=== PATIENT | male | born 1980 | race Caucasian/White ===

== ENCOUNTER 2019-08-21 06:20 | Inpatient (IN) | payer OTHER ==
[~2019-08-21] VITALS: Ht 177.8 cm; Wt 75.5 kg
[2019-08-21] MEDS ORDERED: BUPROPION XL150 M1 PO (06:35)
[2019-08-21 06:44] LABS: BASOPHILS ABSOLUTE AUTO 0.05 K/mm3 (0.00-0.23); BASOPHILS PERCENT AUTO 1 % (0-2); EOSINOPHILS ABSOLUTE AUTO 0.12 K/mm3 (0.00-0.68); EOSINOPHILS PERCENT AUTO 1 % (0-6); Hematocrit 44.8 % (37.0-53.0); Hemoglobin 15.4 g/dL (13.5-17.5); IMMATURE GRAN ABSOLUTE AUTO 0.03 K/mm3 (0.00-0.10); IMMATURE GRAN PERCENT AUTO 0 % (0-1); LYMPHOCYTES ABSOLUTE AUTO 2.72 K/mm3 (0.84-5.20); LYMPHOCYTES PERCENT AUTO 32 % (21-46); MONOCYTES ABSOLUTE AUTO 0.86 K/mm3 (0.16-1.47); MONOCYTES PERCENT AUTO 10 % (4-13); Mean Corpuscular HGB 31.6 pg (26.0-34.0); Mean Corpuscular HGB Conc 34.4 g/dL (31.5-36.5); Mean Corpuscular Volume 92 fL (80-100); Mean Platelet Volume 10.8 fL (9.1-12.4); NEUTROPHILS ABSOLUTE AUTO 4.79 K/mm3 (1.96-9.15); NEUTROPHILS PERCENT AUTO 56 % (41-73); Platelet Count 344 K/mm3 (150-400); RDW Coefficient Variation 11.9 % (11.7-14.2); Red Blood Cell Count 4.88 M/mm3 (4.30-5.90); White Blood Cell Count 8.57 K/mm3 (4.00-11.30)
[2019-08-21 06:56] LABS: Alanine Aminotransfer (ALT/SGP 26 U/L (12-78); Albumin, Blood 4.1 g/dL (3.4-5.0); Albumin/Globulin Ratio 1.1 (0.8-1.8); Alk Phos 81 U/L (50-136); Anion Gap 6 mmol/L (6-16); Aspartate Aminotrans (AST/SGOT 22 U/L (12-37); Bilirubin, Total 0.6 mg/dL (0.1-1.0); Blood Urea Nitrogen 12 mg/dL (8-24); Bun/Creatinine Ratio 16.1 (12.0-20.0); CO2, Blood 27 mmol/L (21-32); Chloride, Blood 107 mmol/L (98-108); Creatinine, Blood 0.75 mg/dL (0.60-1.20); Ethanol (Alcohol), Blood, Med <3 mg/dL; Globulin, Blood 3.8 g/dL (2.2-4.0); Glomerular Filtration Rate >60 (60-); Glucose, Blood 142 mg/dL (70-99); Potassium, Blood 3.5 mmol/L (3.5-5.5); Salicylate <1.7 mg/dL (2.8-20.0); Sodium, Blood 140 mmol/L (136-145); Total Protein, Blood 7.9 g/dL (6.4-8.2)
[2019-08-21 06:58] LABS: Acetaminophen, Random <2.0 ug/mL (10.0-30.0)
--- NOTE | 2019-08-21 09:00 | NUR ---
PT ADMIT PT ADMIT FROM ER, LETHARGIC BUT ARROUSABLE AND FOLLOWS ALL COMMANDS, CALM AT THIS TIME. 12 LEAD OBTAINED, LR BOLUSED, WILL REPLACE K, ONE AMP OF BICARB GIVEN WITH BICARB DRIP STARTED PER ORDER.MONITORING FOR SZ ACTIVITY. VSS AFEBRILE AND PALP PULSES T/O SBP STABLE. RA WITH SATS WNL. CLEAR T/O NPO AND NO BM. 1:1 PT OBS REMAINS AND WILL CONT TO MONITOR
[2019-08-21 09:48] LABS: Base Excess Venous -2.1 mmol/L; Bicarbonate Venous 23.2 mmol/L (24.0-30.0); PCO2 Venous 34.6 mmHg (38-42); PO2 Venous 139 mmHg (38-42); pH Blood Venous 7.42 (7.34-7.37)
[2019-08-21 15:26] LABS: Base Excess Venous 2.7 mmol/L; Bicarbonate Venous 26.7 mmol/L (24.0-30.0); PCO2 Venous 39.2 mmHg (38-42); PO2 Venous 150 mmHg (38-42); pH Blood Venous 7.44 (7.34-7.37)
[2019-08-21 15:29] LABS: Magnesium, Blood 2.2 mg/dL (1.6-2.4); Potassium, Blood 3.5 mmol/L (3.5-5.5)
[2019-08-21 16:04] LABS: Anion Gap 7 mmol/L (6-16); Blood Urea Nitrogen 9 mg/dL (8-24); CO2, Blood 26 mmol/L (21-32); Calcium, Blood 7.9 mg/dL (8.5-10.1); Chloride, Blood 105 mmol/L (98-108); Creatinine, Blood 0.69 mg/dL (0.60-1.20); Glomerular Filtration Rate >60 (60-); Glucose, Blood 150 mg/dL (70-99); Potassium, Blood 3.5 mmol/L (3.5-5.5); Sodium, Blood 138 mmol/L (136-145)
--- NOTE | 2019-08-21 16:16 | NUR ---
PT UPDATE PT REMAINS DROWSY BUT CALM AND COOPREATIVE AND FOLLOWING COMMANDS. DENIES PAIN AT THIS TIME AND 1:1 OBS REMAINS. VSS, TACHY, SBP STABLE AFEBRILE AND PALP PULSES T/O NO EDEMA. Q 1HR 12LEADS COMPLETE AND WILL CONT TO MONITOR QT. RA WITH SATS WNL. NPO ABD FLAT AND SOFT, NO BM. PT VOID CLEAR AND YELLOW URINE WITH UA SENT. SKIN INTAKE. ONE MORE LITER OF LR GIVEN AND K REPLACED PER ORDER. WILL CONT TO MONITOR
--- NOTE | 2019-08-21 21:41 | NUR ---
21:35 SPOKE WITH POISON CONTROL. TO PREVENT ISSUES WITH HYPOKALEMIA, SUGGESTED TO STOP SODIUM BICARB DRIP FOR X1 HOUR, CHECK AN EKG, THEN IF QRS/QT/QTC MAINTAINING, MAY LEAVE BICARB DRIP OFF FOR NIGHT. CURRENTLY HR=91, QRS = 0.12 SECONDS, QT = 0.40 SEC., QTc = 0.492. POTASSIUM HAS BEEN REPLACED WITH 40 MEQ, WILL RECHECK IN AM. SPOKE WITH DR. GONG, HE IS OK WITH INITIATING THESE ORDERS. VSS. WILL CONTINUE TO MONITOR.
--- NOTE | 2019-08-21 21:52 | NUR ---
DIRECT LINE FOR POISON CONTROL = [phone].
[2019-08-21 21:53] LABS: Source, Urine Clean Catch
[2019-08-21 22:02] LABS: Bilirubin, Urine Neg (Neg); Blood, Urine 1+ (Neg); Glucose Qualitative, Urine 1+ (Neg); Ketones, Urine Neg (Neg); Leukocyte Esterase, Urine Neg (Neg); Nitrite, Urine Neg (Neg); Protein, Urine Neg (Neg); Urobilinogen, Urine NORM (Normal)
[2019-08-21 22:13] LABS: U Amphetamine Screen Not Detected; U Barbituate Screen Not Detected; U Benzodiazapine Screen DETECTED; U Buprenorphine Screen Not Detected; U Cannabinoids Screen Not Detected; U Cocaine Screen Not Detected; U Methadone Screen Not Detected; U Methamphetamine Screen Not Detected; U Opiates Screen Not Detected; U Oxycodone Screen Not Detected; U Phencyclidine Screen Not Detected; U Propoxyphene Screen Not Detected
[2019-08-21 22:14] LABS: Appearance, Urine Clear (Clear); Bacteria Not Seen /hpf; Color, Urine Yellow (P-Yellow); Red Blood Cells, Urine Rare /hpf (0-2); Squamous Epithelial Cells Not Seen /hpf (Few); White Blood Cells, Urine Not Seen /hpf (0-5)
[2019-08-22 00:15] LABS: Anion Gap 7 mmol/L (6-16); Blood Urea Nitrogen 7 mg/dL (8-24); Bun/Creatinine Ratio 10.2 (12.0-20.0); CO2, Blood 28 mmol/L (21-32); Calcium, Blood 8.5 mg/dL (8.5-10.1); Chloride, Blood 109 mmol/L (98-108); Creatinine, Blood 0.69 mg/dL (0.60-1.20); Glomerular Filtration Rate >60 (60-); Glucose, Blood 114 mg/dL (70-99); Magnesium, Blood 2.2 mg/dL (1.6-2.4); Phosphorus, Blood 2.1 mg/dL (2.5-4.9); Potassium, Blood 3.7 mmol/L (3.5-5.5); Sodium, Blood 144 mmol/L (136-145)
--- NOTE | 2019-08-22 05:29 | NUR ---
SHIFT SUMMARY PATIENT SLEPT WELL THROUGH NIGHT. VSS. NO C/O PAIN. PATIENT DECLINED INTENTION TO HARM SELF/OTHERS EVERY TIME HE WAS ASKED. ELECTROLYTES REPLACED APPROPRIATE. EKGS OBTAINED, PASSED ON TOWARD POISON CONTROL THEY HAVE CALLING FREQUENTLY ASKING FOR UPDATES. QRS HAS MAINTAINED FROUN 0.14, GIVE OR TAKE O.02. QTc VARIED FROM 0.492 - 0.520. NEARLY NO ECTOPY NOTED THROUGH SHIFT. ASSESSMENT IS CHARTED. WILL CONTINUE TO MONITOR.
[2019-08-22 05:33] LABS: BASOPHILS ABSOLUTE AUTO 0.02 K/mm3 (0.00-0.23); BASOPHILS PERCENT AUTO 0 % (0-2); EOSINOPHILS ABSOLUTE AUTO 0.01 K/mm3 (0.00-0.68); EOSINOPHILS PERCENT AUTO 0 % (0-6); Hemoglobin 13.3 g/dL (13.5-17.5); IMMATURE GRAN ABSOLUTE AUTO 0.05 K/mm3 (0.00-0.10); IMMATURE GRAN PERCENT AUTO 0 % (0-1); LYMPHOCYTES ABSOLUTE AUTO 0.73 K/mm3 (0.84-5.20); LYMPHOCYTES PERCENT AUTO 5 % (21-46); MONOCYTES ABSOLUTE AUTO 1.16 K/mm3 (0.16-1.47); MONOCYTES PERCENT AUTO 8 % (4-13); Mean Corpuscular HGB 31.5 pg (26.0-34.0); Mean Corpuscular HGB Conc 34.1 g/dL (31.5-36.5); Mean Corpuscular Volume 92 fL (80-100); Mean Platelet Volume 10.7 fL (9.1-12.4); NEUTROPHILS ABSOLUTE AUTO 12.73 K/mm3 (1.96-9.15); NEUTROPHILS PERCENT AUTO 87 % (41-73); Platelet Count 265 K/mm3 (150-400); RDW Coefficient Variation 12.4 % (11.7-14.2); RDW Standard Deviation 41.6 fL (35.1-46.3); Red Blood Cell Count 4.22 M/mm3 (4.30-5.90)
[2019-08-22 05:55] LABS: Alanine Aminotransfer (ALT/SGP 22 U/L (12-78); Albumin, Blood 3.4 g/dL (3.4-5.0); Alk Phos 76 U/L (50-136); Anion Gap 6 mmol/L (6-16); Aspartate Aminotrans (AST/SGOT 20 U/L (12-37); Bilirubin, Total 0.6 mg/dL (0.1-1.0); Blood Urea Nitrogen 6 mg/dL (8-24); Bun/Creatinine Ratio 8.3 (12.0-20.0); CO2, Blood 27 mmol/L (21-32); Calcium, Blood 8.5 mg/dL (8.5-10.1); Chloride, Blood 111 mmol/L (98-108); Creatinine, Blood 0.72 mg/dL (0.60-1.20); Globulin, Blood 3.3 g/dL (2.2-4.0); Glomerular Filtration Rate >60 (60-); Glucose, Blood 123 mg/dL (70-99); Potassium, Blood 3.9 mmol/L (3.5-5.5); Sodium, Blood 144 mmol/L (136-145); Total Protein, Blood 6.7 g/dL (6.4-8.2)
--- NOTE | 2019-08-22 09:35 | NUR ---
INITIAL ASSESMENT PT DROWSYLETHARGIC BUT ARROUSABLE AND FOLLOWS ALL COMMANDS, CALM AND COOPERATI THIS TIME. [facility] IN THIS AM TO EVAL PT AND DR DEMPSEY CONSULTED BICARB DRIP REMAINS PER ORDER AND LR INFUSION CONT. MONITORING FOR SZ ACTIVITY AND PT AUDITORY AND VISUAL HALLUCINATIONS VSS AFEBRILE AND PALP PULSES T/O SBP STABLE. RA WITH SATS WNL. CLEAR T/O NPO AND NO BM AND MED EMESIS THIS AM WITH PRN ADMINISTERED AND BT PRESENT T/O 1:1 PT OBS REMAINS AND WILL CONT TO MONITOR
--- NOTE | 2019-08-22 10:43 | NUR ---
Safety Plan complete. Pt cooperative. Still sick to his stomach. He lives with biological mom in [place]. He moved in with her 2 months ago. He works at [id number]. 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 He reports "it was stupid" and "should'vee just waited" for it to pass regarding his OD. He agrees to locking up meds. Mom present during interview and agreed, He states he OD'd because his mom became so upset and angry when he was telling her of his past use--he felt hopeless. He currently has future plans, was responsible and called his work to let them know he would not be in. Recommend he go directly to [facility] for Walk In and get counselor and med provider if he is DC from Hospital. Mom agreed to take him to [facility]. Lupe Ford M.Ed., [facility]
--- NOTE | 2019-08-22 16:30 | NUR ---
PT UPDATE PT REMAINS CALM AND COOPREATIVE ALERT AND ORIENT TIMES 4. 1:1 OBS D/C AND BICARB OFF PER MD ORDER. WILL FOLLOW UP WITH 12 LEAD IN ONE HOUR PER MD ORDER. VSS, RA SATS WNL, NO N/V AT THIS TIME. UO ADEQUATE. PT TO TRANSFER TO [facility] BASED ON ROOM AVAIL. WILL CONT TO MONITOR
--- NOTE | 2019-08-22 21:30 | NUR ---
ASSUMPTION OF CARE ASSUMED CARE OF PT AT 1900, PT RESTING IN BED, AROUSABLE, DENIES SI AT THIS TIME, A&O x4. LS CLEAR T/O, MAINTAINING O2 SATURATIONS ON RA. MONITOR SHOWS NSR, QRS AND QT WNL. PT TOLERATING PO INTAKE, DENIES NAUSEA. REPORT FROM DAY SHIFT PT USING URINAL AND VOIDING ON OWN, PT DENIES GI/ ISSUES AT THIS TIME. PT PLEASANT AND COOPERATIVE, MAKES NEEDS KNOWN, USES CALL LIGHT APPROPRIATELY.
--- NOTE | 2019-08-22 22:23 | NUR ---
REPORT GIVEN TO TERESE VEGA, PT TRANSPORTED TO MEDICAL FLOOR VIA WHEELCHAIR.
--- NOTE | 2019-08-22 22:52 | NUR ---
PATIENT TRANSFERRED FROM ICU 2 TO ROOM 348. ARRIVED TO FLOOR VIA WC. TRANSFERRED TO BED WITH STEADY GAIT. SETTLED INTO THE ROOM, STATES HIS DEPRESSION IS DOING BETTER, AND HE HAS NO SUICIDIAL INTENSIONS AT THIS TIME. ASSESSMENT COMPLETE. CALL LIGHT GIVEN.
--- NOTE | 2019-08-22 23:57 | NUR ---
SHEREEN LAYING WATCHING TV, DENIES ANY NEEDS AT THIS TIME.
--- NOTE | 2019-08-23 06:15 | NUR ---
SHIFT SUMMARY: SHEREEN WAS A ICU TRANSFER TO THIS FLOOR AROUND 0 LAST NIGHT. HE HAS BEEN PLEASANT AND COOPERATIVE. HE HAS DENIED ANY THOUGHTS OF SUICIDE OR PLANS TO HARM HIM SELF. STATES HIS DEPRESSION IS OK AT THIS TIME, HE FEELS SAFE IN THE HOSPITAL. HE HAS BEEN SLEEPING THIS SHIFT EXCEPT WHEN USING THE BATHROOM WHICH HE DOES INDEPENDANTLY. NO ACUTE CHANGES OCCURRED, WILL REPORT TO DAY SHIFT RN.
--- NOTE | 2019-08-23 16:17 | NUR ---
discharge summary patient is pleasant, mom in the room which is okay with the patient. he is alert and oriented. ivs removed. all discharge information was discussed with his mother and him in the room. patient to be wheeled out by ivy villatoro.
== END 2019-08-23 16:30 | disposition home or self-care (01) | DRG 918 ==
LOC: ER 06:20 → ICUE 07:48 → ICUW 07:48 → ICUE 08:32 → MEDS 08-22 22:28
PROVIDERS: Emergency Medicine; Internal Medicine; Nurse Practitioner Acute Care; ADMIT Internal Medicine
DX: T43.291A Poisoning by other antidepressants, accidental (unintentional), initial encounter (principal); F32.9 Major depressive disorder, single episode, unspecified; G40.409 Other generalized epilepsy and epileptic syndromes, not intractable, without status epilepticus; R94.31 Abnormal electrocardiogram [ECG] [EKG]; Z91.5 Personal history of self-harm
CPT/HCPCS: 36415; 80048; 80053; 81001; 82800; 82803; 83735; 84100; 84132; 85025; 93005; 93010; 96365; 96366; 96375; 99285-25; G0480; J0780; J1650; J2060; J3475; J3480; J7030; J7060; J7070; J7120